=== PATIENT | male | born 1990 | race Caucasian/White ===

== ENCOUNTER 2021-12-14 22:07 | Emergency (ER) | payer SELFPAY ==
[2021-12-15] MEDS ORDERED: CYCL10TA21 MT (09:56)
[2021-12-15] MEDS ORDERED: IBUP-2029 MT (09:56)
== END 2021-12-14 22:15 | disposition left against medical advice (07) ==
LOC: ER 22:07
DX: Z53.21 Procedure and treatment not carried out due to patient leaving prior to being seen by health care provider (principal)

== ENCOUNTER 2021-12-15 08:32 | Emergency (ER) | payer SELFPAY ==
[~2021-12-15] VITALS: Ht 167.6 cm; Wt 85.0 kg
[2021-12-15] MEDS ORDERED: KETOROLAC 60MG/2ML VIAL IM ONE (09:15)
[2021-12-15] MEDS ORDERED: IBUP-2029 MT (09:56)
[2021-12-15] MEDS ORDERED: CYCL10TA21 MT (09:56)
[2021-12-15 10:06] VITALS: BP 122/76
== END 2021-12-15 10:06 | disposition home or self-care (01) ==
LOC: ER 08:32
DX: S10.83XA Contusion of other specified part of neck, initial encounter (principal); V43.52XA Car driver injured in collision with other type car in traffic accident, initial encounter; Y93.89 Activity, other specified; Y92.488 Other paved roadways as the place of occurrence of the external cause
CPT/HCPCS: 72040; 73030; 99284; J1885

== ENCOUNTER 2023-11-20 20:58 | Emergency (ER) | payer SELFPAY ==
[~2023-11-20] VITALS: Ht 177.8 cm; Wt 73.0 kg
[~2023-11-20 20:58] MED LIST: CYCL10TA21 MT; IBUP-2029 MT
[2023-11-20 21:00] VITALS: O2SAT 98
[2023-11-20] MEDS ORDERED: ONDANSETRON HCL 4MG/2ML INJ IV STA (21:02)
[2023-11-20] MEDS ORDERED: SODIUM CHLORIDE 0.9% 1,000 ML IV ONE (21:15)
[2023-11-20 23:42] LABS: BASOPHILS % 0.9 % (0.0-2.0); CHLORIDE 103 mEq/L (98-107); EOSINOPHILS % 2.3 % (0.0-5.0); HEMOGLOBIN. 14.7 g/dL (14.0-18.0); LYMPHOCYTES % 25.9 % (20.0-50.0); MEAN CORPUSCULAR HEMOGLOBIN 31.3 pg (28.0-32.0); MEAN CORPUSCULAR HGB CONC 34.1 g/dL (31.0-37.0); MEAN CORPUSCULAR VOLUME 91.8 fL (80.0-94.0); MEAN PLATELET VOLUME 8.8 fl (7.4-10.4); MONOCYTES % 4.5 % (2.0-8.0); NEUTROPHILS % 66.4 % (40.0-76.0); PLATELET 260 x1000/uL (130-400); POTASSIUM 3.7 mEq/L (3.5-5.1); RED BLOOD CELL COUNT 4.69 mill/uL (4.7-6.1); RED CELL DISTRIBUTION WIDTH 13.9 % (11.6-14.6); SODIUM 139 mEq/L (136-145); WHITE BLOOD COUNT 8.9 x1000/uL (4.5-11.0)
[2023-11-20 23:43] LABS: CARBON DIOXIDE 27 mEq/L (21-32)
[2023-11-20 23:48] LABS: CREATININE 0.8 mg/dL (0.6-1.3); GLUCOSE 109 mg/dL (70-105); UREA NITROGEN BLOOD 8 mg/dL (9-23)
[2023-11-20 23:49] LABS: ETHANOL BLOOD 255 mg/dL (<10)
[2023-11-20 23:50] LABS: ACETAMINOPHEN < 2 ug/mL (10-30)
[2023-11-21] MEDS ORDERED: ONDA4TAB50 MT (03:41)
[2023-11-21 03:52] VITALS: BP 122/80; PULSE 70; RESP 15; TEMP 98.9
== END 2023-11-21 03:56 | disposition home or self-care (01) ==
LOC: ER 20:58
DX: F10.129 Alcohol abuse with intoxication, unspecified (principal); G92.8 Other toxic encephalopathy; Z98.890 Other specified postprocedural states; Y90.8 Blood alcohol level of 240 mg/100 ml or more
CPT/HCPCS: 80048; 80307; 80329; 80320; 85025; 36415; 70450; 99284; J7030; G0480

== ENCOUNTER 2024-01-07 18:52 | Emergency (ER) | payer SELFPAY ==
[~2024-01-07] VITALS: Ht 172.7 cm; Wt 65.0 kg
[2024-01-07] MEDS: TETANUS, DIPHTHERIA, PERTUSSIS VAC/PF 0.5ML (>10YR OLD) IM ONE (06:00)
[~2024-01-07 18:52] MED LIST changes: +ONDA4TAB50 MT
[2024-01-07 18:55] VITALS: O2SAT 96
[2024-01-07] MEDS ORDERED: LIDOCAINE HCL 1% 20ML VIAL INFIL ONE (19:30)
[2024-01-07] MEDS ORDERED: LIDOCAINE HCL 1% 20ML VIAL INFIL NR (20:00)
[2024-01-08 06:42] VITALS: BP 140/89; PULSE 53; RESP 18; TEMP 98.7
== END 2024-01-08 06:00 | disposition home or self-care (01) ==
LOC: ER 18:52
DX: S01.112A Laceration without foreign body of left eyelid and periocular area, initial encounter (principal); S01.81XA Laceration without foreign body of other part of head, initial encounter; F10.129 Alcohol abuse with intoxication, unspecified; Z98.890 Other specified postprocedural states; Y04.0XXA Assault by unarmed brawl or fight, initial encounter; Y93.89 Activity, other specified; Y92.89 Other specified places as the place of occurrence of the external cause; Y99.8 Other external cause status; Y90.9 Presence of alcohol in blood, level not specified
CPT/HCPCS: 70450; 72125; 12011; 99284; Z7610 ×2

== ENCOUNTER 2025-06-12 02:42 | Emergency (ER) | payer SELFPAY ==
[~2025-06-12] VITALS: Ht 167.6 cm; Wt 68.0 kg
[~2025-06-12 02:42] MED LIST changes: +IBUP-1455 MT; -IBUP-2029 MT
[2025-06-12 03:00] VITALS: O2SAT 98
[2025-06-12] MEDS: IBUPROFEN 800MG TABLET PO ONE (03:49)
[2025-06-12] MEDS ORDERED: IBUP-1455 MT (04:13)
[2025-06-12] MEDS ORDERED: HYDR-4001 MT (04:13)
[2025-06-12 04:26] VITALS: BP 116/66; PULSE 70; RESP 19; TEMP 37; O2SAT 95
== END 2025-06-12 04:26 | disposition home or self-care (01) ==
LOC: ER 03:00
DX: S52.222A Displaced transverse fracture of shaft of left ulna, initial encounter for closed fracture (principal); W21.11XA Struck by baseball bat, initial encounter; Y93.89 Activity, other specified; Y92.89 Other specified places as the place of occurrence of the external cause; Y99.8 Other external cause status
CPT/HCPCS: 29105; 73080; 73090; 99284